=== PATIENT | male | born 1990 | race African-American/Black ===

== ENCOUNTER 2023-06-18 09:38 | Emergency (ER) | payer SELFPAY ==
[2023-06-18 09:41] VITALS: BP 149/94; PULSE 63; RESP 18; TEMP 97.3; BMI 20.9
[2023-06-18 10:23] LABS: EPI CELLS 2 /uL (0-25.1); HYALINE CASTS 0 /uL (0-3.1); URINE APPEARANCE CLEAR; URINE BACTERIA 5 /uL (0-1359); URINE BILIRUBIN NEGATIVE (NEGATIVE); URINE COLOR YELLOW; URINE GLUCOSE (UA) NEGATIVE (NEGATIVE); URINE KETONE NEGATIVE (NEGATIVE); URINE LEUK ESTERASE NEGATIVE (NEGATIVE); URINE NITRITE NEGATIVE (NEGATIVE); URINE PROTEIN NEGATIVE (NEGATIVE); URINE RBC 18 /uL (0-23.9); URINE UROBILINOGEN 0.2 mg/dL (0.2-1.0); URINE WBC 4 /uL (0-25.8)
[2023-06-18] MEDS ORDERED: cefTRIAXone SODIUM 1 GM VIAL ONE (10:24)
[2023-06-18] MEDS ORDERED: LIDOCAINE HCL/PF 1% SDV 5ML VIAL ONE (10:25)
[2023-06-18] MEDS ORDERED: LIDOCAINE HCL 1%, 10 MG/ML (50 mL VIAL) SQ ONE (10:37)
== END 2023-06-18 11:05 | disposition home or self-care (01) ==
LOC: JERFT 09:38
DX: R30.0 Dysuria (principal); R30.9 Painful micturition, unspecified; Z11.3 Encounter for screening for infections with a predominantly sexual mode of transmission
CPT/HCPCS: 36415; 81003; 87086; 87491; 87591; 99284-25